=== PATIENT | female | born 1955 | race Caucasian/White ===

== ENCOUNTER → 2016-09-10 | Day surgery (SDC) | payer OTHER, MEDICARE ==
[~2016-09-10] MED LIST: BETAMETHASONE D0.054 TOP; CALCIUM + D 6001 TAB PO; CLARITIN10 MG PO; CLOTRIMAZOLE1% TOP; ENULOSE 2020 GM/30 M PO; FENTANYL TR12 MCG/HR TOP; HYDROCHLOROTH12.5 MG; LACTULOSE10 GM/15 M PO; MAXEPA1000 MG PO; MEDROXYPROGEST2.5 M1 PO; MONTELUKAST SOD10 MG PO; MULTIVITAMIN1 TAB PO; NAPROXEN500 MG PO; NYAMYC100000 U/G TOP; NYSTATIN100000 U/2 TOP; PERCOCET 325 MG1 TA2 PO; PREMARIN 1.251.25 MG PO; PROAIR HFA0.09 MG/Ac INH; PROVERA5 MG PO; TRIAMCINOL0.1 %/453 TOP; TRIAMCINOLON TOP; TRIAMCINOLONE 0.1 GM TOP; VITAMIN B12500 MCG PO; VITAMIN C500 M3 PO; ZYRTEC ALLERGY10 MG PO
--- NOTE | 2016-09-15 13:46 | Operative Report ---
Operative/Inv Procedure Report Surgery Date: 09/10/16 Name of Procedure: D&C hysteroscopy Pre-Operative Diagnosis: Postmenopausal bleeding Post-Operative Diagnosis: SAME Estimated Blood Loss: less than 50ml Surgeon/Crane Assembler: MARGARITA MAJOR MD Anesthesia: moderate sedation Operative/Procedure Note Note: Procedure note patient was taken the operating room after adequate anesthesia patient placed in dorsal supine position vagina temperatures fashion bladder was catheterized examination anesthesia performed single-tooth tenaculum placed on the Intralipid cervix gentle downward traction cervix dilated 29 Hegar to left insertion hysteroscope the scope was inserted and direct visualization using gas hysteroscope was Sharp curettage endometrial lining was performed sharp curettage and cervical lining 2 specimen sent to pathology patient tolerated that well on since removed from the vagina patient was returned spine position awakened from anesthesia and transported recovery room awake alert Findings: Normal size uterus no adnexal masses normal lining of the uterus
== END ==
LOC: STS 03:13
DX: N95.0 Postmenopausal bleeding (principal); E66.9 Obesity, unspecified; Z68.44 Body mass index [BMI] 60.0-69.9, adult; I10 Essential (primary) hypertension; M19.90 Unspecified osteoarthritis, unspecified site
CPT/HCPCS: 81025; 88305; J2250

== ENCOUNTER 2017-10-18 11:20 | Emergency (ER) | payer OTHER ==
[~2017-10-18] VITALS: Ht 157.5 cm; Wt 148.8 kg
[2017-10-18 11:31] VITALS: BP 91/66
[2017-10-18] MEDS ORDERED: NYSTATIN1 EAC3 TOP (11:43)
[2017-10-18] MEDS ORDERED: DIFLUCAN200 M1 PO (11:43)
--- NOTE | 2017-10-18 11:46 | ED GENERAL ADULT ---
History of Present Illness General Chief Complaint: Skin Rash/ Abcess Stated Complaint: RASH ALL OVER BODY X1 WEEK Source: patient Exam Limitations: no limitations Vital Signs & Intake/Output Vital Signs & Intake/Output Vital Signs Date Time Temp Pulse Resp B/P B/P Pulse O2 O2 Flow FiO2 Mean Ox Delivery Rate 10/18 1131 98.3 115 20 91/66 96 Room Air Allergies Coded Allergies: MDX - Amoxicillin (From AUGMENTIN) (UNKNOWN 03/19/14) MDX - Clavulanic Acid (From AUGMENTIN) (UNKNOWN 03/19/14) MDX - Gatifloxacin (Gatifloxacin) (UNKNOWN REACTION TO TEQUIN 03/19/14) MDX - Penicillin G (From Penicillin G Potassium) (UNKNOWN 03/19/14) Reconcile Medications Albuterol Sulfate (Proair Hfa) 0.09 MG/Actuation PRANAV 2 PUFF INH Q4-6 PRN BREATHING (Reported) Ascorbic Acid (Vitamin C) 500 MG TAB 1 TAB PO DAILY SUPPLEMENT (Reported) Estrogenic Subst Conj (Premarin) 0.625 MG TABLET 0.625 MG PO DAILY MENOPAUSE (Reported) Fish Oil (Maxepa) 1,000 MG SGL 1 TAB PO DAILY high cholesterol (Reported) Fluconazole (Diflucan) 200 MG TABLET 0.5 TAB PO DAILY fungal infection Lactulose 10 GRAM/15 ML SOLUTION 30 ML PO QAM CONSTIPATION (Reported) Loratadine (Claritin) 10 MG TAB 1 TAB PO DAILY itching Medroxyprogesterone Acetate 2.5 MG TAB 1 TAB PO DAILY HRT (Reported) Montelukast Sodium 10 MG TABLET 1 TAB PO DAILY ALLERGIES (Reported) Multivitamin (Multiple Vitamins) 1 EACH TABLET 1 TAB PO DAILY SUPPLEMENT ( Reported) Naproxen 500 MG TABLET 1 TAB PO BID PAIN (Reported) Nystatin 2 BILLION UNIT POWDER.EA. 1 APPLIC TOP 4 TIMES/DAY fungal infection OXYCODONE HCL/ACETAMINOPHEN (Percocet 5-325 MG Tablet) 325 MG/5 MG TAB 1 TAB PO BID PRN PAIN (Reported) Triamcinolone Acetonide (Triamcinolone 0.1% Cream ) 1 GM CRM 1 SHARMAINE TOP BID RASH (Reported) Triage Note: PT TO ED, SENT FROM URGENT CARE FOR FUNGAL RASH ALL OVER BODY. PT WAS SEEN AT [facility] ON 10/14 AND GIVEN PO ABX AND ANTI-FUNGAL CREAMS. SEEN BY LUIS FRANK IN TRIAGE. Triage Nurses Notes Reviewed? yes Onset: Gradual Duration: day(s): Timing: constant HPI: 62 y/o female with h/o diabetes, HTN, asthma presenting with rash underneath her breasts, pannus, and behind both knees x4 days. Was seen at [facility] and given nystatin powder, nystatin cream, and oral diflucan x4 days. Has been using without relief. Was seen at an urgent care today and referred in for eval. Denies fevers or drainage from the wounds. States that her glucose levels have been WNL. (Marilyn Ludwig) Past History Travel History Traveled to [place] past 21 day No Medical History Any Pertinent Medical History? see below for history Cardiovascular: hypertension Respiratory: asthma Endocrine: diabetes History of MRSA: No History of VRE: No History of CDIFF: No Surgical History Surgical History: non-contributory Psychosocial History Who do you live with Patient/Self Services at Home Home Health Aide What is your primary language Faroese Tobacco Use: Quit >30 days ago ETOH Use: denies use Illicit Drug Use: denies illicit drug use Family History Family History, If Any: Relation not specified for: *No pertinent family history Hx Contributory? No (Marilyn Ludwig) Review of Systems Review of Systems Constitutional: Reports: no symptoms. EENTM: Reports: no symptoms. Respiratory: Reports: no symptoms. Cardiovascular: Reports: no symptoms. GI: Reports: no symptoms. Genitourinary: Reports: no symptoms. Musculoskeletal: Reports: no symptoms. Skin: Reports: see HPI. Neurological/Psychological: Reports: no symptoms. Hematologic/Endocrine: Reports: no symptoms. Immunologic/Allergic: Reports: no symptoms. (Marilyn Ludwig) Physical Exam Physical Exam General Appearance: well developed/nourished, no apparent distress, alert, awake , comfortable Head: atraumatic, normal appearance Eyes: Bilateral: normal appearance. Neck: normal inspection Respiratory: normal breath sounds, lungs clear Cardiovascular: regular rate/rhythm Gastrointestinal: soft, non-tender Back: normal inspection Extremities: normal range of motion Neurologic/Psych: awake, alert, oriented x 3, normal gait, normal mood/affect Skin: intact, warm/dry, diffuse erythema with white scaling under bilateral breast, behind bilateral knees, and underneath pannus. No lesions or drainage. Core Measures ACS in differential dx? No CVA/TIA Diagnosis: No Sepsis Present: No Sepsis Focused Exam Completed? No (Marilyn Ludwig) Progress Differential Diagnoses I considered the following diagnoses in my evaluation of the patient: [bean intertrigo, low concern for contact dermatitis vs allergic reaction vs cellulitis vs abscess vs nec fasc] Plan of Care: Given rx nystatin powder with refills, and diflucan x2 weeks. Extensively counseled on supportive care and glucose control. Will f/u with PMD and given strict return precautions. Initial ED EKG: none (Marilyn Ludwig) Departure Departure Disposition: HOME OR SELF CARE Condition: Stable Clinical Impression Primary Impression: Candidal intertrigo Referrals: Maya Felipe APRN (PCP/Family) Additional Instructions: Take diflucan and nystatin powder as directed. Keep the areas dry and clean. Keep your glucose level in normal range. Follow up with your primary care provider for re-evaluation. Return to the emergency department for any new or worsening symptoms. Departure Forms: Customer Survey General Discharge Information Prescriptions: Current Visit Scripts Nystatin 1 APPLIC TOP 4 TIMES/DAY #1 BOT Ref 2 Fluconazole (Diflucan) 0.5 TAB PO DAILY #7 TAB (Marilyn Ludwig) PA/REGIONAL AGRONOMIST Co-Sign Statement Statement: ED Attending supervision documentation- x I saw and evaluated the patient. I have also reviewed all the pertinent lab results and diagnostic results. I agree with the findings and the plan of care as documented in the PA's/REGIONAL AGRONOMIST's documentation. [] I have reviewed the ED Record and agree with the PA's/REGIONAL AGRONOMIST's documentation. [] Additions or exceptions (if any) to the PAs/REGIONAL AGRONOMIST's note and plan are summarized below: [] (Jean-Pierre UMANA,Tejinder) Critical Care Note Critical Care Note Critical Care Time: non-applicable (Marilyn Ludwig)
[2017-10-19] MEDS ORDERED: IBUPROFEN600 M1 PO (16:45)
[2017-10-19] MEDS ORDERED: BENADRYL ALLERG25 M2 PO (16:45)
== END 2017-10-18 12:10 ==
LOC: ERH 11:20
DX: B37.2 Candidiasis of skin and nail (principal)

== ENCOUNTER 2017-10-19 12:52 | Emergency (ER) | payer OTHER ==
[~2017-10-19] VITALS: Ht 157.5 cm; Wt 145.2 kg
[~2017-10-19 12:52] MED LIST changes: +DIFLUCAN200 M1 PO; +NYSTATIN1 EAC3 TOP
[2017-10-19 13:07] VITALS: BP 142/82
[2017-10-19] MEDS ORDERED: IBUPROFEN600 M1 PO (16:45)
[2017-10-19] MEDS ORDERED: BENADRYL ALLERG25 M2 PO (16:45)
--- NOTE | 2017-10-19 16:46 | ED SKIN/ALLERGY COMPLAINT ---
History of Present Illness General Chief Complaint: Skin Rash/ Abcess Stated Complaint: RASH ALL OVER BODY Source: patient, old records Exam Limitations: physical impairment Vital Signs & Intake/Output Vital Signs & Intake/Output Vital Signs Date Time Temp Pulse Resp B/P B/P Pulse O2 O2 Flow FiO2 Mean Ox Delivery Rate 10/19 1307 96.9 104 18 142/82 95 Room Air Room Air Allergies Coded Allergies: MDX - Amoxicillin (From AUGMENTIN) (UNKNOWN 03/19/14) MDX - Clavulanic Acid (From AUGMENTIN) (UNKNOWN 03/19/14) MDX - Gatifloxacin (Gatifloxacin) (UNKNOWN REACTION TO TEQUIN 03/19/14) MDX - Penicillin G (From Penicillin G Potassium) (UNKNOWN 03/19/14) Reconcile Medications Albuterol Sulfate (Proair Hfa) 0.09 MG/Actuation PRANAV 2 PUFF INH Q4-6 PRN BREATHING (Reported) Ascorbic Acid (Vitamin C) 500 MG TAB 1 TAB PO DAILY SUPPLEMENT (Reported) Diphenhydramine HCl (Benadryl Allergy) 25 MG TABLET 1-2 TAB PO Q6P PRN itchy rash Estrogenic Subst Conj (Premarin) 0.625 MG TABLET 0.625 MG PO DAILY MENOPAUSE (Reported) Fish Oil (Maxepa) 1,000 MG SGL 1 TAB PO DAILY high cholesterol (Reported) Fluconazole (Diflucan) 200 MG TABLET 0.5 TAB PO DAILY fungal infection Ibuprofen 600 MG TABLET 1 TAB PO Q6P PRN pain with food Lactulose 10 GRAM/15 ML SOLUTION 30 ML PO QAM CONSTIPATION (Reported) Loratadine (Claritin) 10 MG TAB 1 TAB PO DAILY itching Medroxyprogesterone Acetate 2.5 MG TAB 1 TAB PO DAILY HRT (Reported) Montelukast Sodium 10 MG TABLET 1 TAB PO DAILY ALLERGIES (Reported) Multivitamin (Multiple Vitamins) 1 EACH TABLET 1 TAB PO DAILY SUPPLEMENT ( Reported) Naproxen 500 MG TABLET 1 TAB PO BID PAIN (Reported) Nystatin 2 BILLION UNIT POWDER.EA. 1 APPLIC TOP 4 TIMES/DAY fungal infection OXYCODONE HCL/ACETAMINOPHEN (Percocet 5-325 MG Tablet) 325 MG/5 MG TAB 1 TAB PO BID PRN PAIN (Reported) Triamcinolone Acetonide (Triamcinolone 0.1% Cream ) 1 GM CRM 1 SHARMAINE TOP BID RASH (Reported) Triage Note: PT TO ED WITH C/O "RASH ALL OVER, IT'S HEAT RASH AND MEDICINE ISN'T WORKING THAT THEY GAVE ME HERE". Triage Nurses Notes Reviewed? yes Onset: Last week Duration: day(s): Timing: recent history Severity: severe Location: torso, extremities Possible Factors: exposure to illness Modifying Factors: Improves With: scratching. Associated Symptoms: change in skin texture, rash LMP (ages 10-50): post menopausal : No Patient currently breastfeeds: No HPI: 4 days prior to admission patient complains of itchy red rash with scaling beneath breasts bilateral inguinal areas behind left knee. She was prescribed nystatin powder and fluconazole. She returns because she still has itchy rash with pain. She denies fever chills nausea vomiting diarrhea abdominal pain chest pain shortness breath headache dysuria bleeding. Past History Travel History Traveled to [place] past 21 day No Medical History Any Pertinent Medical History? see below for history Neurological: NONE EENT: NONE Cardiovascular: hypertension Respiratory: asthma Gastrointestinal: NONE Hepatic: NONE Renal: NONE Musculoskeletal: NONE Psychiatric: NONE Endocrine: diabetes Blood Disorders: NONE Cancer(s): NONE BOATHOUSE KEEPER/Reproductive: NONE History of MRSA: No History of VRE: No History of CDIFF: No Surgical History Surgical History: non-contributory Psychosocial History Who do you live with Patient/Self Services at Home Home Health Aide What is your primary language Japanese Tobacco Use: Never used ETOH Use: denies use Illicit Drug Use: denies illicit drug use Family History Family History, If Any: Relation not specified for: *No pertinent family history Hx Contributory? No Review of Systems Review of Systems Constitutional: Reports: no symptoms. EENTM: Reports: no symptoms. Respiratory: Reports: no symptoms. Cardiovascular: Reports: no symptoms. GI: Reports: no symptoms. Genitourinary: Reports: no symptoms. Musculoskeletal: Reports: no symptoms. Skin: Reports: see HPI, rash. Neurological/Psychological: Reports: no symptoms. Hematologic/Endocrine: Reports: no symptoms. Immunologic/Allergic: Reports: no symptoms. All Other Systems: Reviewed and Negative Physical Exam Physical Exam General Appearance: well developed/nourished, alert, awake, anxious, mild distress, obese Head: atraumatic, normal appearance Eyes: Bilateral: normal appearance, PERRL, EOMI. Ears, Nose, Throat: normal pharynx, normal ENT inspection, hearing grossly normal Neck: normal inspection, supple, full range of motion, no midline tenderness Respiratory: normal breath sounds, chest non-tender, no respiratory distress, quiet respiration, lungs clear Cardiovascular: regular rate/rhythm, normal peripheral pulses, norml femoral pulses equa Peripheral Pulses: 4+ carotid (R), 4+ carotid (L) Gastrointestinal: normal bowel sounds, soft, non-tender, no organomegaly Back: normal inspection, normal range of motion, no vertebral tenderness Extremities: normal inspection, normal capillary refill, normal range of motion, no edema, no ligament instability Neurologic/Psych: no motor/sensory deficits, awake, alert, oriented x 3, normal gait, normal mood/affect, house registry rn II-XII nml as tested Reflexes: 2+: bicep (R), bicep (L). Skin: rash Skin Problem Location: torso, lower extremities Skin Problem Character: erythema, patchy, thickening, intertrigo to bilateral breasts upper abdomen bilateral inguinal and left posterior knee with scaling and satellite lesions Lymphatic: no anterior cervical leif Progress Differential Diagnosis: abscess/cellulitis, allergic reaction, contact dermatitis Plan of Care: Current Medications Sig/Turner Start time Last Medication Dose Stop Time Status Admin Diphenhydramine HCl 50 MG ONCE ONE 10/19 1644 UNVr (Benadryl) 10/19 1645 Ibuprofen 600 MG ONCE ONE 10/19 1644 UNVr (Motrin) 10/19 1645 Departure Departure Time of Disposition: 1642 Disposition: HOME OR SELF CARE Condition: Stable Clinical Impression Primary Impression: Intertrigo Referrals: Maya Feilpe APRN (PCP/Family) Additional Instructions: Continue your anti-fungal medications Departure Forms: Customer Survey General Discharge Information Prescriptions: Current Visit Scripts Diphenhydramine HCl (Benadryl Allergy) 1-2 TAB PO Q6P PRN itchy rash #50 TAB Ref 1 Ibuprofen 1 TAB PO Q6P PRN pain #50 TAB with food
== END 2017-10-19 16:52 ==
LOC: ERH 12:52
DX: L30.4 Erythema intertrigo (principal)